=== PATIENT | female | born 1940 | race Caucasian/White ===

== ENCOUNTER 2018-05-19 06:18 | Outpatient (CLI) | payer MEDICARE ==
[~2018-05-19 06:18] MED LIST: ASPI81TA46 PO; CARV-50 PO; CHLO25TA2 PO; FLUO20TA28 PO; MECL12.584 PO; MICO100S5 VG; OMEP-50 PO; POTA10TA15 PO; RAMI10CA69 PO
== END 2018-05-19 23:59 | disposition home or self-care (01) ==
LOC: DIABETIC 06:18
PROVIDERS: ATTEND Internal Medicine
DX: E11.9 Type 2 diabetes mellitus without complications (principal); I10 Essential (primary) hypertension; Z79.82 Long term (current) use of aspirin; Z79.899 Other long term (current) drug therapy; Z96.652 Presence of left artificial knee joint; Z90.710 Acquired absence of both cervix and uterus
CPT/HCPCS: G0108

== ENCOUNTER 2019-02-22 14:47 | Outpatient (CLI) | payer MEDICARE ==
[~2019-02-22] VITALS: Ht 160 cm; Wt 80.7 kg
[~2019-02-22 14:47] MED LIST changes: +ASPI81TA44 PO; -ASPI81TA46 PO
[2019-02-22 16:06] LABS: TOTAL HEMOGLOBIN 15.9 G/dl (12.0-16.0)
[2019-02-22] MEDS ORDERED: albuterol 2.5 MG/3 ML nebule NEB PRN (16:15)
== END 2019-02-22 23:59 | disposition home or self-care (01) ==
LOC: RT 14:47
PROVIDERS: ATTEND Internal Medicine
DX: J44.9 Chronic obstructive pulmonary disease, unspecified (principal)
CPT/HCPCS: 85018; 94060; 94727; 94729; 94760

== ENCOUNTER 2020-09-06 10:43 | Emergency (ER) | payer MEDICARE ==
[~2020-09-06] VITALS: Ht 160 cm; Wt 78.9 kg
[~2020-09-06 10:43] MED LIST changes: +MECL-226 PO; -MECL12.584 PO
[2020-09-06 11:31] VITALS: BP 115/55
== END 2020-09-06 11:54 | disposition home or self-care (01) ==
LOC: ER 10:44
DX: S90.32XA Contusion of left foot, initial encounter (principal); M79.672 Pain in left foot; E78.00 Pure hypercholesterolemia, unspecified; I10 Essential (primary) hypertension; K21.9 Gastro-esophageal reflux disease without esophagitis; Z90.89 Acquired absence of other organs; Z90.710 Acquired absence of both cervix and uterus; Z98.890 Other specified postprocedural states; Z79.82 Long term (current) use of aspirin; Z79.899 Other long term (current) drug therapy; W01.0XXA Fall on same level from slipping, tripping and stumbling without subsequent striking against object, initial encounter; Y93.89 Activity, other specified; Y92.89 Other specified places as the place of occurrence of the external cause; Y99.8 Other external cause status
CPT/HCPCS: 73630; 99283